=== PATIENT | female | born 1985 | race Two or more races ===

== ENCOUNTER 2025-07-20 09:52 | Inpatient (IN) | payer MEDICAID ==
[~2025-07-20] VITALS: Ht 170.2 cm; Wt 98.5 kg
[2025-07-20] MEDS ORDERED: PROP10TA10 PO (10:27)
[2025-07-20] MEDS ORDERED: PRAZ1CAP5 PO (10:27)
[2025-07-20] MEDS ORDERED: CHLO25TA68 PO (10:27)
[2025-07-20] MEDS ORDERED: LITH300C PO (10:27)
--- NOTE | 2025-07-20 10:44 | Physician Documentation ---
History of Present Illness ~ Chief Complaint: Mental Health Eval Stated Complaint: EVAL Time Seen by MD: 10:18 Mode of Arrival: Ambulatory HPI Patient is seen today with complaints of feeling like she has a danger to herself and the patient presented today with her mother with whom she lives and the mother states she feels she is in danger. Patient denies any chest pain or shortness of breath or abdominal pain or nausea, vomiting, diarrhea. Patient admits to history of bipolar, schizophrenia and dissociative disorder. Patient has no other concern or complaint at this time. Medication Reconciliation Allergies: Coded Allergies: haloperidol (Verified Allergy, Severe, swollen throat, 07/20/25) lamotrigine (Verified Allergy, Intermediate, chest rash, 07/20/25) Scheduled Chlorpromazine HCl (Chlorpromazine HCl), 1 TAB PO DAILY, (Reported) [place] Carbonate ([place] Carbonate), 1 CAP PO DAILY, (Reported) Prazosin Hcl (Prazosin Hcl), 1 CAP PO HS, (Reported) Propranolol Hcl* (Inderal*), 2 TAB PO TID, (Reported) Review of Systems Constitutional: Denies: chills, fever, weakness Eyes: Denies: pain, blurred vision ENT: Denies: ear pain, nose pain, throat pain, mouth pain Respiratory: Denies: cough, shortness of breath Cardiovascular: Denies: chest pain, palpitations Gastrointestinal: Denies: abdominal pain, nausea, vomiting Genitourinary: Denies: burning, dysuria Female Genitalia: Denies: vaginal discharge, pelvic pain Neurological: Denies: headache, dizziness Musculoskeletal: Denies: pain, swelling Integumentary: Denies: rash, lesions Allergic/Immunologic: Denies: hives, itching Hematologic/Lymphatic: Denies: no symptoms reported Psychiatric: Denies: depression, anxiety Physical Exam Vital Signs: Temperature: 97.4, Source: Temporal, Heart Rate: 72, Respiratory Rate: 15, BP: 128/74, Pulse Oximetry: 99, Weight: 97.000 Oxygen Flow Rate: 0 Physical Exam General: Awake and Alert, no acute distress. HEENT: Conjunctiva pink, Sclera clear, Mucus Membranes moist. Neck: Supple without masses and tenderness. Resp: Unlabored. Lungs clear to auscultation bilaterally. Heart: Regular Rate and rhythm, normal S1 and S2 without murmur, rub or gallop. Abdomen: Soft and non tender no organomegaly Extremities: No cyanosis,clubbing or edema. Skin: Warm and Dry. Progress Results/Orders Results/Orders Orders - LIZA BOLTON [facility] Rec (07/20/25 10:43) 1799.11 (07/20/25 10:43) Close Observation Level (07/20/25 10:43) Covid19 Binax Poc Result Entry (07/20/25 10:43) Substance Use Navigator (07/20/25 10:43) Regular Diet (07/20/25 Dinner) Completed Orders - LIZA BOLTON Cbc/Diff (07/20/25 10:43) Hcg, Ur Ql (07/20/25 10:43) Drug Screen, Urine (07/20/25 10:43) Ethanol (07/20/25 10:43) TSH (07/20/25 10:43) BMP (07/20/25 10:43) Ua With Microscopic (07/20/25 12:50) Vital Signs 07/20/25 09:53 Temp 97.4 Pulse 72 Resp 15 B/P (MAP) 128/74 Pulse Ox 99 O2 Flow Rate 0 Laboratory Tests Test 07/20/25 10:52 07/20/25 12:50 07/20/25 13:10 White Blood Count 7.3 Red Blood Count 4.16 L Hemoglobin 13.6 Hematocrit 39.5 Mean Corpuscular Volume 95.1 Mean Corpuscular Hemoglobin 32.6 H Mean Corpuscular Hemoglobin Concent 34.3 Red Cell Distribution Width 13.6 Platelet Count 282 Mean Platelet Volume 7.1 L Neutrophils (%) (Auto) 74.1 Lymphocytes (%) (Auto) 16.0 L Monocytes (%) (Auto) 7.6 Eosinophils (%) (Auto) 1.7 Basophils (%) (Auto) 0.6 Neutrophils # (Auto) 5.4 Lymphocytes # (Auto) 1.2 Monocytes # (Auto) 0.6 Eosinophils # (Auto) 0.1 Basophils # (Auto) 0.0 CBC Comment Sodium Level 141 Potassium Level 4.2 Chloride Level 107 Carbon Dioxide Level 24.2 Anion Gap 10 Blood Urea Nitrogen 7 Creatinine 0.70 Estimated GFR/1.73 m2 > 90 BUN/Creatinine Ratio 10.0 Glucose Level 98 Calcium Level 8.6 Albumin 3.5 Thyroid Stimulating Hormone (TSH) 1.85 Chemistry Comments Ethyl Alcohol Level < 10 Urine Specimen Description Voided Urine Color Yellow Urine Clarity Clear Urine pH 7.0 Urine Specific [place] 1.015 Urine Protein Negative Urine Glucose (UA) Negative Urine Ketones Negative Urine Occult Blood Trace-intact Urine Nitrite Negative Urine Bilirubin Negative Urine Urobilinogen 0.2 Urine Leukocyte Esterase Negative Urine RBC None seen Urine WBC 0-4 Urine Squamous Epithelial Cells Moderate Urine Bacteria Few Volume Urine Centrifuged 10 ml Urine HCG, Qualitative Negative Urine Comment Urine Opiates Screen Negative Urine Methadone Screen Negative Urine Fentanyl Screen Negative Urine Barbiturates Screen Negative Urine Phencyclidine Screen Negative Urine Amphetamines Screen Negative Urine Benzodiazepines Screen Negative Urine Cocaine Screen Negative Urine Cannabinoids Screen Positive Drug Screen Comment SARS-CoV-2 Antigen (Rapid) Negative Medical Decision Making Findings Patient is seen today with complaints of feeling like she has a danger to herself and the patient presented today with her mother with whom she lives and the mother states she feels she is in danger. Patient denies any chest pain or shortness of breath or abdominal pain or nausea, vomiting, diarrhea. Patient admits to history of bipolar, schizophrenia and dissociative disorder. Patient has no other concern or complaint at this time. Patient is medically cleared for psychiatric evaluation. Departure Disposition: 30 STILL A PATIENT Impression: Primary Impression: Suicidal ideation Additional Impression: Schizophrenia Qualified Codes: F20.9 - Schizophrenia, unspecified Condition: Fair Discharge Instructions: Schizophrenia, Suicidal Feelings: How to Help Yourself Additional Instructions: Patient is medically cleared for psychiatric evaluation. Transfer orders for [facility]: At this time there is no evidence of an emergent medical condition that would preclude (admission/transfer) to a psychiatric unit via [facility] protocol for further psychiatric, as well as medical evaluation and treatment. At this time I have no reason to believe that transfer via [facility] protocol would have serious medical compromise in the patient's health. Referrals: NO PRIMARY CARE PROVIDER (PCP) Signature Scribe Signature: No scribe Attestation: No scribe LIZA BOLTON PAC Jul 20, 2025 10:44
[2025-07-20 11:12] LABS: MEAN PLATELET VOLUME 7.1 FL (7.4-10.4); RED CELL DISTRIBUTION WIDTH 13.6 % (11.5-14.5)
[2025-07-20 11:36] LABS: CREATININE 0.70 MG/DL (0.40-0.90); ETHANOL < 10 MG/DL (<10); TOTAL CARBON DIOXIDE 24.2 MMOL/L (24-32); eCRCL 101 ML/MIN; eGFR > 90 ML/MIN
[2025-07-20 13:00] LABS: LEUKOCYTE ESTERASE ,URINE NEGATIVE (Neg); NITRITES, URINE NEGATIVE (Neg); OCCULT BLOOD,URINE TRACE-INTACT (Neg)
[2025-07-20 13:02] LABS: URINE HCG NEGATIVE (NEG)
[2025-07-20 13:08] LABS: URINE AMPHETAMINE SCREEN NEGATIVE (Neg); URINE BARBITUATE SCREEN NEGATIVE (Neg); URINE BENZODIAZEPINES SCREEN NEGATIVE (Neg); URINE CANNABINOID SCREEN POSITIVE (Neg); URINE COCAINE SCREEN NEGATIVE (Neg); URINE METHADONE SCREEN NEGATIVE (Neg); URINE OPIATE SCREEN NEGATIVE (Neg); URINE PHENCYCLIDINE SCREEN NEGATIVE (Neg)
[2025-07-20 13:10] LABS: UA COLLECTION TYPE VOIDED
[2025-07-20 13:12] LABS: SQUAMOUS EPITHELIAL CELL,UR MODERATE /LPF (FEW)
--- NOTE | 2025-07-20 16:49 | ELECTROCARDIOGRAPH REPORT ---
[facility] Test Date: 2025-07-20 Test Time: 16:46:30 Pat Name: SWETHA HALE Department: [facility]- Patient ID: [id number] Room: ED 22 Gender: F Tug Hand: DEVONTE : 1985 Requested By: LIZA BOLTON Order Number: [id number] Reading MD: Dr. Cesar Jaquez Measurements Intervals [place] Rate: 73 P: 41 [place]: 136 QRS: 48 QRSD: 97 T: 27 QT: 370 QTc: 408 Interpretive Statements Sinus rhythm Borderline T abnormalities, anterior leads Electronically Signed On 08-06-2025 7:44:[address] Cesar Jaquez Please click the below link to view image of tracing.
[2025-07-20 18:00] LABS: CHOL/HDL RATIO 3.9 (0.00-4.99); LDL CHOLESTEROL 85 MG/DL (50-100)
[2025-07-20] MEDS: propranolol 10mg tablet PO ONE (23:15)
[2025-07-21] MEDS: propranolol 10mg tablet PO SCH (08:49)
[2025-07-21 16:02] VITALS: BP 116/71; PULSE 83; RESP 17; TEMP 98.1; O2SAT 99
[2025-07-21] MEDS ORDERED: magnesium hydroxide 30ml (MOM) UD suspension PO PRN (16:15)
[2025-07-21] MEDS ORDERED: loperamide 2mg capsule PO PRN (16:15)
[2025-07-21] MEDS ORDERED: mag hydrox/Alum hydrox/simeth 30ml oral suspension PO PRN (16:15)
[2025-07-21 16:30] VITALS: RESP 17; O2SAT 99
[2025-07-21 19:00] VITALS: BP 102/54; PULSE 71; RESP 20; TEMP 98; O2SAT 99
[2025-07-22 07:00] VITALS: BP 99/50; PULSE 85; RESP 16; TEMP 98.9; O2SAT 97
[2025-07-22] MEDS: nicotine 21mg patch - 24 hr TD SCH (08:00)
--- NOTE | 2025-07-22 08:55 | PROGRESS NOTE ---
Progress Note Dictate Providers to CC ~ Objective Vitals Vital Signs Date Time Temp Pulse Resp B/P (MAP) Pulse Ox O2 Delivery O2 Flow Rate FiO2 07/21/25 19:00 20 99 Room Air 07/21/25 19:00 98.0 71 102/54 (70) 07/21/25 08:46 0 Lab Results: 07/20/25 1052 07/20/25 1052 Problem\Assessment\Plan Problems/Diagnosis: (1) Psychosis (2) Suicidal ideation Problem Qualifiers (1) Psychosis: EDDIE MCKEON [facility] Jul 22, 2025 08:55
[2025-07-22 09:34] LABS: CHOL/HDL RATIO 4.9 (0.00-4.99); LDL CHOLESTEROL 112 MG/DL (50-100)
[2025-07-22] MEDS: NICOTINE POLACRILEX 2 MG LOZENGE BC PRN (12:20)
--- NOTE | 2025-07-22 12:51 | ELECTROCARDIOGRAPH REPORT ---
[facility] Test Date: 2025-07-22 Test Time: 12:49:07 Pat Name: SWETHA HALE Department: [facility] Patient ID: [id number] Room: 330 B Gender: F Logistics Clerk: Arminda : 1985 Requested By: EDDIE MCKEON Order Number: [id number] Reading MD: Dr. Maribeth Presley Measurements Intervals [place] Rate: 70 P: 41 [place]: 127 QRS: 35 QRSD: 99 T: 25 QT: 391 QTc: 422 Interpretive Statements Sinus rhythm Electronically Signed On 07-26-2025 7:08:[address] Maribeth Presley Please click the below link to view image of tracing.
--- NOTE | 2025-07-22 17:53 | HISTORY AND PHYSICAL ---
History & Physical Providers to No new complaint today, resting comfortably in the bed ~ admitted to mental unit with history of schizophrenia in exacerbation History of Present Illness Reason for Admit\Complaint: As above History of Present Illness This is a 39 years old lady relatively in good health except history of bipolar disorder and schizophrenia chronic on medications, history of tobacco marijuana, abuse chronic , including ongoing, history of hypertension, asthma, pre morbid obesity BMI 33, dyslipidemia, presented to to emergency department chief complaint suicidal ideation; Patient is seen today with complaints of feeling like she has a danger to herself and the patient presented today with her mother with whom she lives and the mother states she feels she is in danger. Patient denies any chest pain or shortness of breath or abdominal pain or nausea, vomiting, diarrhea. Patient admits to history of bipolar, schizophrenia and dissociative disorder. Patient has no other concern or complaint at this time. In emergency department she was evaluated by medical provider physician, she was diagnosed with schizophrenia exacerbation and decision was made to admit patient for further evaluation and treatment to mental health unit. No additional complaint or concern Allergies: Coded Allergies: haloperidol (Verified Allergy, Severe, swollen throat, 07/20/25) lamotrigine (Verified Allergy, Intermediate, chest rash, 07/20/25) Active prescriptions I reviewed reconciled Home Medications Home Medications Active Reported [place] Carbonate 300 Mg Capsule 1 Cap PO DAILY 30 Days Prazosin Hcl 1 Mg Capsule 1 Cap PO HS 30 Days Chlorpromazine HCl 25 Mg Tablet 1 Tab PO DAILY 30 Days Inderal* (Propranolol HCl) 10 Mg Tablet 2 Tab PO TID Past Medical History Past Medical History As in HPI Past Surgical History Surgical History Comment As in HPI Past Social History Social History Comment Positive for chronic tobacco marijuana use including currently, deny alcohol or illicit drug use, live with the family good social support Health Maintenance Health Maintenance Noncontributory ROS ROS Constitutional : no fever , no chills, or weakness. No diaphoresis. Allergic/Immunologic, no lymphadenopathy, no hives, no skin eruptions. Eyes, no recent visual changes, no eye pain, no photophobia. Ears, nose, mouth, throat, no sore throat, no nosebleed, no ear pain. Cardiovascular, no palpitations, skipped beats, chest pain, no peripheral edema, Respiratory, no dyspnea, orthopnea, cough, hemoptysis, chest wall pain. Gastrointestinal, no abdominal pain, nausea, vomiting, constipation or diarrhea. : no dysuria, hematuria, pelvic pain, urethral d/c. Endocrine, no polyuria, polydipsia, recent unintentional weight gain or loss. Hematologic/Lymphatic, no petechiae, no enlarged lymph nodes, no bone pain. Integumentary, no rash, no skin lesions, Musculoskeletal, no muscle aches, or pain, no muscle cramps, no recent change in gait Neurological, no dizziness, no headache, no syncope, no paresthesia. Psychiatric, no delusions, visual hallucinations, or hearing hallucinations. ROS - in rest is as in HPI. Exam Vitals: Vital Signs Date Time Temp Pulse Resp B/P (MAP) Pulse Ox O2 Delivery O2 Flow Rate FiO2 07/22/25 07:00 98.9 85 16 99/50 (66) 97 Room Air 07/21/25 08:46 0 Vital signs, stable ,afebrile. Pulse Oximetry reflects adequate oxygenation. BMI is 33, weight 97 kg General: well developed, well nourished. Awake , alert, and oriented x4, resting comfortably in the bed, in no acute distress . Skin: Warm, dry, no pallor, no rash or petechiae. HEENT: Atraumatic, normocephalic, EOMI, anicteric sclera B; pink conjunctiva; PERRLA, normal oropharynx, moist oral and nasal mucosa. Tympanic membrane , nose , throat clear. Neck: Trachea midline. Supple, full range of motion, no JVD, bruit , hepatojugular reflex , lymphadenopathy or masses, or other lesions Cardiac: Regular rhythm, regular rate no murmurs, rubs, or gallops. Normal S1 and S2, no S3 noticed. PMI is normal. Respiratory: Equal breath sounds bilaterally, no tachypnea; lungs clear to auscultation bilaterally, no wheezing ,rub or rales, or crackles. Chest wall is symmetric and without deformity. No signs of trauma. Chest wall is nontender. No signs of respiratory distress. Resonance is normal upon percussion bilaterally. Gastrointestinal: Abdomen symmetric, non-distended, soft, non-tender, normal bowel sounds x4 quadrant, normoactive, no hepatosplenomegaly , no masses , no bruit, no flank pain bilaterally. No voluntary guarding, rebound, or rigidity. No tenderness to percussion. No pulsatile masses. Equal femoral pulses. No Harman's sign or McBurney point tenderness. Back; no CVA tenderness bilaterally, no deformities. Neck and back are without deformity as well. No tenderness noted on palpation of the spinous processes. Spinous processes are midline. Cervical, thoracic, and lumbar paraspinal muscles are not tender and are without spasm. : Not indicated Musculoskeletal: Extremities, normal range of motion, non-tender, muscle strength 5/5 x 4. Negative Homans signs bilaterally on lower extremity. Distal pulses full symmetrical, no clubbing, cyanosis , edema. Neurological: Speech is clear, alert, and oriented x 4. No motor or sensory deficit, deep tendon reflexes normal, cerebellar intact. Cranial nerves II-XII intact. Psych: Alert and or appropriate, normal affect. Vascular: Good distal pulses, which are equal x4; capillary refill less than 2 seconds. Lymphatic, no lymphadenopathy. Diagnostic Data Last Recorded Lab Results: 07/20/25 1052 07/20/25 1052 Advance Care Planning Advanced Care plannin - 30 Minutes Additional Plan Assessment/plan Chronic schizophrenia, bipolar disorder in exacerbation, treatment per Psychiatric team Hypertension fair control History of chronic tobacco and marijuana use including currently, started on nicotine patch, consulted for 5 minutes to stop using tobacco marijuana patient agrees Pre morbid obesity BMI 33, Nutrition consult Dyslipidemia, consulted regarding lifestyle modification exercise diet Hospitalist team we will follow patient per hospital protocol Sepsis Screening Reassessment Date: Jul 22, 2025 Date of Service: Jul 22, 2025 Billing Provider: JOSELITO LEE MD Common Visit Codes: [id number] INP/OBS CARE(MOD) Secondary Visit Codes: [id number] CHNG SMOKING 3-10M, [id number] CARE PLAN 30 MINUTES JOSELITO LEE MD Jul 22, 2025 17:53
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
[2025-07-22 20:00] VITALS: BP 110/68; PULSE 81; RESP 16; TEMP 97.9; O2SAT 99
[2025-07-23 07:00] VITALS: BP 126/76; PULSE 87; RESP 14; TEMP 97.8; O2SAT 95
[2025-07-23 09:32] LABS: CREATININE 0.66 MG/DL (0.40-0.90); TOTAL CARBON DIOXIDE 26.0 MMOL/L (24-32); eCRCL 111 ML/MIN; eGFR > 90 ML/MIN
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
[2025-07-23 19:00] VITALS: RESP 20; O2SAT 100
[2025-07-23 20:00] VITALS: BP 155/92; PULSE 125; RESP 20; TEMP 97.9; O2SAT 100
[2025-07-24 07:00] VITALS: RESP 16; O2SAT 96
[2025-07-24 08:00] VITALS: BP 101/74; PULSE 81; RESP 16; TEMP 98.4; O2SAT 96
--- NOTE | 2025-07-24 12:17 | PROGRESS NOTE ---
Progress Note Dictate Providers to CC ~ Central Line/PICC still needed: N\A Antibiotic Ordered?: N/A MRSA Education MRSA Education Provided to pt: N/A Objective Vitals Vital Signs Date Time Temp Pulse Resp B/P (MAP) Pulse Ox O2 Delivery O2 Flow Rate FiO2 07/24/25 08:00 98.4 81 16 101/74 (83) 96 07/24/25 07:00 Room Air 0.0 Lab Results: 07/20/25 1052 07/23/25 0728 Psychiatrist's Progress Note Date of Service: Jul 24, 2025 Notes HPI: Admitted on a 5150 for danger to self and danger to others, psychotic symptoms- AVH, paranoia, suicidal ideation with plans, erratic behavior. Endorsed thoughts of wanting to jump off a building. Paranoid that someone wants to harm her. Concern she can escalate quickly to a state of agitation which is why her mother is concerned that she isnt safe in her home. History notable for command hallucinations. Endorses disassociating, feels out of body, will see herself from the other side of the room. Endorses intrusive obsessive thought process- states she has been feeling like people are all around her looking at her, in her personal space. Has fear that she is unable to protect herself- no specific individuals . She describes that she was wandering around the house and she told her mother how she was feeling which prompted her mother to bring her to the hospital. Assessment Patient was assessed in the Provider Room. Patient was alsrt and oreinted x 2, forgetful of the date. Patient was able to answer my question albeit she tended to be tangential and to be refocused at times. She was amenable to [id number]. Patient states she has occasional auditory hjallucinations. She heard her mother's voice while we were talking. The auditory hallucinations today has not been disturbing. Patient does state that she has anxiety issues. She denies being fearful for her safety, she believes that this place is welcoming and safe. she denies having visual hallucinations. When I asked her about bad dreams she said that she did not have any nightmares recently. Laughing, patient stated that instead she had lewd dreams. She said that she was going down on somebody. She did not elaborate further. She said that she did not have any scary dreams recently. Safety risk: low risk of imminent self-harm, low risk of externalized violent behaviors Hallucinations: Auditory Suicidality: None Homicidality: None Delusions: None Behavior: Cooperative, Bizarre Insight: Poor Judgment: Poor Treatment Start lorazepam 1 mg po prn Q6 hr for anxiety/paranoia Continue lithium 600 mg po qd [place] level ordered - follow up on lab work Discontinue thorazine 25 mg po qd and Continue thorazine 50 mg po prn q6 for psychotic symptoms Continue propranolol 20 mg po TID Continue prazosin 1 mg po qhs UZEDY 75 mg IM administered on 07/14/25 Maintenance therapy for tobacco use disorder: schedule nicotine patch, prn nicotine lozenges Continue Q15 min checks Continue Groups/Milieu Engagement Spent approximately 45 minutes reviewing records and test results, assessing and treatment planning, completing care coordination and documenting the encounter. Discussed risks, including possible adverse effects, and benefits of treatment recommendations including no treatment. Voice recognition software may have been used to dictate this note. There may be errors due to use of such software. Reporting of serious errors is appreciated. Discharge to home with scheduled follow ups for outpatient therapy and medication management No Access to firearms. CODING VISIT-PSYCHIATRY Date of Service: Jul 24, 2025 Billing Provider: MIKE DIEGO APRN Psych Common Visit Codes: [id number] INP/OBS CARE(Mod) MIKE DIEGO APRN Jul 24, 2025 12:17
--- NOTE | 2025-07-24 18:29 | PROGRESS NOTE ---
Daily Progress Note Providers to CC ~ Antibiotic Timeout Antibiotic Ordered?: No Subjective Patient was seen in her room she cooperated well during physical exam looks comfortable. She mentioned that off and on she feels that somebody's choking her throat in she can not breathe. I did counseling to her and also explained to her that her oxygen saturation is well her lung sounds is clear in her respiratory rate is normal. Objective Vital Signs Date Time Temp Pulse Resp B/P (MAP) Pulse Ox O2 Delivery O2 Flow Rate FiO2 07/24/25 14:50 16 07/24/25 08:00 98.4 81 101/74 (83) 96 07/24/25 07:00 Room Air 0.0 Result Diagram: 07/20/25 1052 07/23/25 0728 General-patient not in any acute distress, alert awake oriented, age- appropriate, looks comfortable HEENT-atraumatic normocephalic, neck supple without elevated JVD, No lymphadenopathy bilaterally. Eyes-no icterus or pallor seen in eyes Chest-clear to auscultation bilaterally, breathing nonlabored no tachypnea, no wheezing, no crepitation, no crackles. Heart-S1-S2 normal, regular heart rate no murmur Abdomen bowel sounds positive on auscultation, soft nondistended nontender no guarding, no rigidity Skin no active skin rash Neurology-grossly intact, nonfocal alert awake cooperated during physical examination Extremity- no pedal edema able to move all 4 extremities, ambulates Problem\Assessment\Plan Chronic schizophrenia, bipolar disorder in exacerbation, treatment per Psychiatric team Hypertension fair control History of chronic tobacco and marijuana use including currently, started on nicotine patch, consulted for 5 minutes to stop using tobacco marijuana patient agrees Pre morbid obesity BMI 33, Nutrition consult Dyslipidemia, consulted regarding lifestyle modification by Dr Roberts , needs exercise and diet control Hospitalist team we will follow patient per hospital protocol Date of Service: Jul 24, 2025 Billing Provider: DIMPLE SUAREZ MD Common Visit Codes: [id number] INP/OBS CARE(LOW) DIMPLE SUAREZ MD Jul 24, 2025 18:29
[2025-07-24 19:00] VITALS: RESP 17; O2SAT 99
[2025-07-24 20:00] VITALS: BP 127/77; PULSE 98; RESP 17; TEMP 98.6; O2SAT 99
[2025-07-25 07:00] VITALS: RESP 16; O2SAT 99
[2025-07-25 08:00] VITALS: BP 109/58; PULSE 61; RESP 16; TEMP 97.9; O2SAT 99
--- NOTE | 2025-07-25 14:42 | PROGRESS NOTE ---
Progress Note Dictate Providers to CC ~ Central Line/PICC still needed: N\A Antibiotic Ordered?: N/A MRSA Education MRSA Education Provided to pt: N/A Objective Vitals Vital Signs Date Time Temp Pulse Resp B/P (MAP) Pulse Ox O2 Delivery O2 Flow Rate FiO2 07/25/25 13:15 16 07/25/25 08:00 97.9 61 109/58 (75) 99 07/25/25 07:00 Room Air 0.0 Lab Results: 07/23/25 0728 Psychiatrist's Progress Note Date of Service: Jul 25, 2025 Notes Admitted on a 5150 for danger to self and danger to others, psychotic symptoms- AVH, paranoia, suicidal ideation with plans, erratic behavior. Endorsed thoughts of wanting to jump off a building. Paranoid that someone wants to harm her. Concern she can escalate quickly to a state of agitation which is why her mother is concerned that she isnt safe in her home. History notable for command hallucinations. Endorses disassociating, feels out of body, will see herself from the other side of the room. Endorses intrusive obsessive thought process- states she has been feeling like people are all around her looking at her, in her personal space. Has fear that she is unable to protect herself- no specific individuals . She describes that she was wandering around the house and she told her mother how she was feeling which prompted her mother to bring her to the hospital. Assessment Patient was assessed in the Provider Room. Patient was alsrt and oreinted x 2, forgetful of the date. Patient was tangential and required to be refocused at times. She was amenable to redirection. Patient states she has occasional auditory hallucinations. She heard her mother's voice while we were talking. The auditory hallucinations today has not been disturbing. Patient does state that she has anxiety issues. She denies being fearful for her safety, she believes that this place is welcoming and safe. she denies having visual hallucinations. When I asked her about bad dreams she said that she did not have any nightmares recently. She said that she did not have any scary dreams recently. She was seen pacing the hallways majority of the day yesterday. She spends a little more time resting at her room today. Safety risk: low risk of imminent self-harm, low risk of externalized violent behaviors Hallucinations: Auditory Suicidality: None Homicidality: None Delusions: None Behavior: Cooperative, Bizarre Insight: Poor Judgment: Poor Treatment Treatment Continue lorazepam 1 mg po prn Q6 hr for anxiety/paranoia Continue Risperidone 1 mg PO BID Continue lithium 600 mg po qd Continue thorazine 50 mg po prn q6 for psychotic symptoms Continue propranolol 20 mg po TID Continue prazosin 1 mg po qhs UZEDY 75 mg IM administered on 07/14/25 Maintenance therapy for tobacco use disorder: schedule nicotine patch, prn nicotine lozenges Continue Q15 min checks Continue Groups/Milieu Engagement Spent approximately 30 minutes reviewing records and test results, assessing and treatment planning, completing care coordination and documenting the encounter. Discussed risks, including possible adverse effects, and benefits of treatment recommendations including no treatment. Voice recognition software may have been used to dictate this note. There may be errors due to use of such software. Reporting of serious errors is appreciated. Discharge to home with scheduled follow ups for outpatient therapy and medication management No Access to firearms. CODING VISIT-PSYCHIATRY Date of Service: Jul 25, 2025 Billing Provider: MIKE DIEGO APRN Psych Common Visit Codes: [id number] INP/OBS CARE(Mod) MIKE DIEGO APRN Jul 25, 2025 14:42
[2025-07-25] MEDS: OLANZAPINE 5 MG TABLET PO ONE (17:24)
[2025-07-25 19:00] VITALS: RESP 20; O2SAT 98
[2025-07-25 20:00] VITALS: BP 124/74; PULSE 92; RESP 20; TEMP 98.3; O2SAT 98
[2025-07-26 07:00] VITALS: RESP 16; O2SAT 100
[2025-07-26 08:00] VITALS: BP 112/61; PULSE 69; RESP 16; TEMP 98.1; O2SAT 100
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
--- NOTE | 2025-07-26 18:18 | PROGRESS NOTE ---
Daily Progress Note Providers to CC ~ Antibiotic Timeout Antibiotic Ordered?: No Subjective Patient is seen in her room she cooperated well and denies any concerns. She looked comfortable Objective Vital Signs Date Time Temp Pulse Resp B/P (MAP) Pulse Ox O2 Delivery O2 Flow Rate FiO2 07/26/25 12:08 14 07/26/25 08:00 98.1 69 112/61 (78) 100 Room Air 07/25/25 07:00 0.0 Result Diagram: 07/23/25 0728 General-patient not in any acute distress, alert awake oriented, age- appropriate, looks comfortable HEENT-atraumatic normocephalic, neck supple without elevated JVD, No lymphadenopathy bilaterally. Eyes-no icterus or pallor seen in eyes Chest-clear to auscultation bilaterally, breathing nonlabored no tachypnea, no wheezing, no crepitation, no crackles. Heart-S1-S2 normal, regular heart rate no murmur Abdomen bowel sounds positive on auscultation, soft nondistended nontender no guarding, no rigidity Skin no active skin rash Neurology-grossly intact, nonfocal alert awake cooperated during physical examination Extremity- no pedal edema able to move all 4 extremities, ambulates Problem\Assessment\Plan Chronic schizophrenia, bipolar disorder in exacerbation, treatment per Psychiatric team Hypertension fair control History of chronic tobacco and marijuana use including currently, started on nicotine patch, consulted for 5 minutes to stop using tobacco marijuana patient agrees Pre morbid obesity BMI 33, Nutrition consult Dyslipidemia, consulted regarding lifestyle modification by Dr Roberts , needs exercise and diet control Hospitalist team we will follow patient per hospital protocol Date of Service: Jul 26, 2025 Billing Provider: DIMPLE SUAREZ MD Common Visit Codes: [id number] INP/OBS CARE(LOW) DIMPLE SUAREZ MD Jul 26, 2025 18:18
[2025-07-26 19:25] VITALS: RESP 18; O2SAT 98
[2025-07-26 19:29] VITALS: BP 113/80; PULSE 105; RESP 16; TEMP 98; O2SAT 99
[2025-07-27 07:00] VITALS: RESP 14; O2SAT 94
[2025-07-27 08:00] VITALS: BP 103/53; PULSE 66; RESP 14; TEMP 98.6; O2SAT 94
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
[2025-07-27 19:00] VITALS: RESP 16; O2SAT 99
[2025-07-27 20:00] VITALS: BP 127/71; PULSE 91; RESP 16; TEMP 97.6; O2SAT 99
[2025-07-28 07:00] VITALS: RESP 16; O2SAT 98
[2025-07-28 08:00] VITALS: BP 104/57; PULSE 57; RESP 16; TEMP 97.8; O2SAT 98
--- NOTE | 2025-07-28 18:07 | PROGRESS NOTE- Residence ---
Progress Note - Resident Providers to CC Resident Creating Document: SHIVANI SHEA RES ~ Antibiotic Timeout Antibiotic Ordered?: No Subjective patient was examined at bed side, she denies any acute symptoms Objective Vital Signs Date Time Temp Pulse Resp B/P (MAP) Pulse Ox O2 Delivery O2 Flow Rate FiO2 07/28/25 12:20 15 07/28/25 08:00 97.8 57 104/57 (73) 98 Room Air 07/25/25 07:00 0.0 General-patient not in any acute distress, alert awake oriented, age- appropriate, looks comfortable HEENT-atraumatic normocephalic, neck supple without elevated JVD, No lymphadenopathy bilaterally. Eyes-no icterus or pallor seen in eyes Chest-clear to auscultation bilaterally, breathing nonlabored no tachypnea, no wheezing, no crepitation, no crackles. Heart-S1-S2 normal, regular heart rate no murmur Abdomen bowel sounds positive on auscultation, soft nondistended nontender no guarding, no rigidity Skin no active skin rash Neurology-grossly intact, nonfocal alert awake cooperated during physical examination Extremity- no pedal edema able to move all 4 extremities, ambulates Advance Care Planning Advanced Care plannin - 30 Minutes Assessment Assessment Chronic schizophrenia, bipolar disorder in exacerbation, treatment per Psychiatric team Hypertension fair control History of chronic tobacco and marijuana use including currently, started on nicotine patch, consulted for 5 minutes to stop using tobacco marijuana patient agrees Pre morbid obesity BMI 33, Nutrition consult Dyslipidemia, recommended lifestyle modification and exercise and diet control Hospitalist team we will follow patient per hospital protocol shivani shea PGY1 Date of Service: Jul 28, 2025 Billing Provider: NOEMÍ SÁNCHEZ MD Common Visit Codes: [id number] INP/OBS CARE(MOD) SHIVANI SHEA RES Jul 28, 2025 18:06 NOEMÍ SÁNCHEZ MD Aug 02, 2025 14:08
[2025-07-28 19:00] VITALS: RESP 16; O2SAT 98
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
[2025-07-28 19:53] VITALS: BP 113/60; PULSE 71; RESP 16; TEMP 98.1; O2SAT 98
[2025-07-29 07:00] VITALS: RESP 16; O2SAT 99
[2025-07-29 08:00] VITALS: BP 100/62; PULSE 83; RESP 16; TEMP 97.9; O2SAT 99
[2025-07-29 19:00] VITALS: RESP 16; O2SAT 98
[2025-07-29 20:03] VITALS: BP 110/52; PULSE 79; RESP 15; TEMP 98; O2SAT 98
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
[2025-07-30 07:00] VITALS: RESP 14; O2SAT 97
[2025-07-30 08:00] VITALS: BP 106/57; PULSE 64; RESP 14; TEMP 98.1; O2SAT 97
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
[2025-07-30 19:00] VITALS: RESP 20; O2SAT 100
[2025-07-30 19:26] VITALS: BP 115/50; PULSE 71; RESP 20; TEMP 97.9; O2SAT 100
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
[2025-07-31 07:00] VITALS: RESP 16; O2SAT 92
[2025-07-31 08:44] VITALS: BP 109/56; PULSE 76; RESP 16; TEMP 97.7; O2SAT 92
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
[2025-07-31 19:00] VITALS: RESP 16; O2SAT 94
[2025-07-31 20:00] VITALS: BP 136/80; PULSE 80; RESP 16; TEMP 97.8; O2SAT 94
[2025-08-01 07:00] VITALS: RESP 13; O2SAT 95
[2025-08-01 08:00] VITALS: BP 105/51; PULSE 62; RESP 13; TEMP 98.6; O2SAT 95
[2025-08-01] MEDS: Permethrin 1% 59ml topical rinse TP ONE (10:50)
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
--- NOTE | 2025-08-01 16:43 | PROGRESS NOTE ---
Daily Progress Note Providers to CC ~ Antibiotic Timeout Antibiotic Ordered?: No Subjective This is the hospitalist progress note on patients hospitalized at [facility] [place]. I reviewed the cervical spine CT scan findings with the patient- the patient was requesting Tylenol No. 3 however Iva the patient's WAITER/WAITRESS CAPTAIN informs me that the patient reported that is she has had issues previously with medications and took medications to frequently. That has a lice infestation in the mental health department and Ms. Andrade was found to have lice in his being treated with permethrin shampoo and has received a dose of Ivernectin Objective Vital Signs Date Time Temp Pulse Resp B/P (MAP) Pulse Ox O2 Delivery O2 Flow Rate FiO2 08/01/25 13:41 14 08/01/25 08:00 98.6 62 105/51 (69) 95 Room Air Gen No acute distress - alert and oriented Respiratory no dyspnea appreciated Neuro no limitation in movement of the upper and lower extremities Problem\Assessment\Plan Chronic schizophrenia, bipolar disorder in exacerbation, treatment per Psychiatric team Hypertension fair control History of chronic tobacco and marijuana use including currently, started on nicotine patch, consulted for 5 minutes to stop using tobacco marijuana patient agrees Pre morbid obesity BMI 33, Nutrition consult Dyslipidemia, consulted regarding lifestyle modification by Dr Roberts , needs exercise and diet control Neck pain- cervical spine CT scan demonstrated moderate disc C5-C6. C6-C7 Per my conversation with WAITER/WAITRESS CAPTAIN the patient has had overuse issues with controlled medications in the past and even though the patient requested Tylenol #3- I elected not to give the patient any opiate medications at this juncture Icy hot Lice treated with a dose of topical permethrin and a dose of p.o. Ivermectin with a repeat dose in one-week. The hospitalist service will continue to follow the patient while hospitalized at [facility] center for behavioral health. Date of Service: Aug 01, 2025 Billing Provider: DELVIN GARCIA DO Common Visit Codes: [id number] INP/OBS CARE(MOD) DELVIN GARCIA DO Aug 01, 2025 16:42
[2025-08-01 19:00] VITALS: RESP 14; O2SAT 100
[2025-08-01 20:00] VITALS: BP 89/49; PULSE 68; RESP 14; TEMP 98.3; O2SAT 100
[2025-08-02 07:00] VITALS: RESP 16; O2SAT 96
[2025-08-02 08:00] VITALS: BP 112/61; PULSE 60; RESP 16; TEMP 97.8; O2SAT 96
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
[2025-08-02 19:00] VITALS: RESP 15; O2SAT 99
[2025-08-02 20:00] VITALS: BP 122/82; PULSE 110; RESP 18; TEMP 97.5; O2SAT 99
[2025-08-03 07:00] VITALS: RESP 16; O2SAT 96
[2025-08-03 08:00] VITALS: BP 109/61; PULSE 78; RESP 16; TEMP 98.2; O2SAT 96
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
--- NOTE | 2025-08-03 18:14 | PROGRESS NOTE- Residence ---
Progress Note - Resident Providers to CC Resident Creating Document: FELISHA MOORE RES ~ Antibiotic Timeout Antibiotic Ordered?: No Subjective Patient was seen and examined at the bedside. Patient does not have any medical complaints today. Previously reported neck pain is resolved. No other symptoms reported. Objective Vital Signs Date Time Temp Pulse Resp B/P (MAP) Pulse Ox O2 Delivery O2 Flow Rate FiO2 08/03/25 12:26 14 08/03/25 08:00 98.2 78 109/61 (77) 96 Room Air General: Awake and Alert, no acute distress. HEENT: Conjunctiva pink, Sclera clear, Mucus Membranes moist. Neck: Supple without masses and tenderness. Resp: Unlabored. Lungs clear to auscultation bilaterally. Heart: Regular Rate and rhythm, normal S1 and S2 without murmur, rub or gallop. Abdomen: Soft and non tender no organomegaly Extremities: No cyanosis,clubbing or edema. Skin: Warm and Dry. Assessment Assessment Plan Plan Assessment 39-year-old female patient admitted for danger to self and danger to others, psychotic symptoms Schizophrenia Bipolar disorder, presents with psychosis and danger to herself Psychiatry management Hypertension, well-controlled BP 109/61mmHg Continue home medication History of chronic tobacco and marijuana use Started on nicotine patch Pre morbid obesity BMI 33 Dyslipidemia Recommended lifestyle modification and exercise and diet control Cervical spine pain, resolved Cervical spine x-ray: Multilevel cervical spondylosis. No acute fracture or traumatic malalignment. Tylenol as needed Disposition: The hospitalist team will continue to follow Resident MD attestation The above note has been reviewed and supervised by a senior resident PGY2/PGY3 Patient was seen, examined and discussed with the attending physician Date of Service: Aug 03, 2025 Billing Provider: NOEMÍ SÁNCHEZ MD, LUCAS, RES Aug 03, 2025 18:14
[2025-08-03 19:00] VITALS: BP 120/80; RESP 16; TEMP 98; O2SAT 100
[2025-08-04 07:00] VITALS: RESP 14; O2SAT 96
[2025-08-04 08:00] VITALS: BP 99/53; PULSE 71; RESP 14; TEMP 98.2; O2SAT 96
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
[2025-08-04 19:00] VITALS: RESP 20; O2SAT 97
[2025-08-04 20:00] VITALS: BP 124/83; PULSE 80; RESP 20; TEMP 98; O2SAT 97
[2025-08-05 07:30] VITALS: BP 113/58; PULSE 55; TEMP 98.8; O2SAT 100
[2025-08-05 08:00] VITALS: RESP 14; O2SAT 100
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
--- NOTE | 2025-08-05 16:53 | PROGRESS NOTE ---
Daily Progress Note Providers to CC ~ Antibiotic Timeout Antibiotic Ordered?: No Subjective This is the hospitalist progress note on patients hospitalized at [facility] [place]. Patient requested to be started on Adderall I informed her that that was up to the mental health provider and that it was not my decision to make. The patient has no acute medical complaints or concerns. Objective Vital Signs Date Time Temp Pulse Resp B/P (MAP) Pulse Ox O2 Delivery O2 Flow Rate FiO2 08/05/25 12:02 16 08/05/25 08:00 100 Room Air 08/05/25 07:30 98.8 55 113/58 (76) Gen No acute distress - alert and oriented Respiratory no dyspnea appreciated Neuro no limitation in movement of the upper and lower extremities Problem\Assessment\Plan Chronic schizophrenia, bipolar disorder in exacerbation, treatment per Psychiatric team Hypertension well-controlled History of chronic tobacco and marijuana use including currently, started on nicotine patch, consulted for 5 minutes to stop using tobacco marijuana patient agrees Pre morbid obesity BMI 33, Nutrition consult Dyslipidemia, consulted regarding lifestyle modification by Dr Roberts , needs exercise and diet control Neck pain- cervical spine CT scan demonstrated moderate disc C5-C6. C6-C7 Per my conversation with EMBALMER ASSISTANT the patient has had overuse issues with controlled medications in the past and even though the patient requested Tylenol #3- I elected not to give the patient any opiate medications at this juncture Icy hot Lice treated with a dose of topical permethrin and a dose of p.o. Ivermectin with a repeat dose in one-week.- remains on contact precautions The hospitalist service will continue to follow the patient while hospitalized at [facility] for behavioral health. Date of Service: Aug 05, 2025 Billing Provider: DELVIN GARCIA DO Common Visit Codes: [id number] INP/OBS CARE(LOW) DELVIN GARCIA DO Aug 05, 2025 16:53
[2025-08-05 19:00] VITALS: RESP 18; O2SAT 99
[2025-08-05 20:00] VITALS: BP 123/73; PULSE 122; RESP 18; TEMP 98.4; O2SAT 99
[2025-08-06 07:00] VITALS: BP 123/78; PULSE 124; RESP 12; TEMP 98.1; O2SAT 99
[2025-08-06] MEDS ORDERED: RISP-32 PO (09:07)
[2025-08-06] MEDS ORDERED: LIT300C PO (09:07)
[2025-08-06] MEDS ORDERED: PRAZ1CAP5 PO (09:07)
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
[2025-08-06 12:30] VITALS: RESP 16
== END 2025-08-06 17:35 | disposition home or self-care (01) | DRG 761 ==
LOC: ER 09:53 → ED HOLD 07-21 13:52 → UNDOADMIN 07-21 13:52 → ADULT MH 07-21 13:52
PROVIDERS: ADMIT Psychiatry & Neurology Psychiatry; ATTEND Psychiatry & Neurology Psychiatry
PROC: GZHZZZZ Group Psychotherapy (ICD-10-PCS; principal; 2025-07-31)
PROC: GZ51ZZZ Individual Psychotherapy, Behavioral (ICD-10-PCS; 2025-07-31)
DX: F25.0 Schizoaffective disorder, bipolar type (principal); R45.851 Suicidal ideations; Z59.00 Homelessness unspecified; E66.01 Morbid (severe) obesity due to excess calories; F12.90 Cannabis use, unspecified, uncomplicated; Z20.822 Contact with and (suspected) exposure to COVID-19; F40.10 Social phobia, unspecified; J45.909 Unspecified asthma, uncomplicated; E78.5 Hyperlipidemia, unspecified; I10 Essential (primary) hypertension; Z68.33 Body mass index [BMI] 33.0-33.9, adult; Z79.899 Other long term (current) drug therapy
CPT/HCPCS: 36415; 72040; 80048; 80053; 80061; 80178; 80305; 80320; 81001; 81025; 82248; 83036; 84443; 85025; 87081; 87811; 93005; 99285; Q0161; Q0177